=== PATIENT | female | born 1950 | race Caucasian/White ===

== ENCOUNTER → 2022-10-30 | Outpatient (REF) | payer MEDICARE | LOC: M LAB REF 17:55 | PROVIDERS: ATTEND Internal Medicine Nephrology | DX: R80.9 Proteinuria, unspecified (principal) ==

== ENCOUNTER → 2022-11-23 | Outpatient (CLI) | payer MEDICARE | LOC: M RAD 09:06 | PROVIDERS: ATTEND Internal Medicine Nephrology | DX: N18.31 Chronic kidney disease, stage 3a (principal); I70.1 Atherosclerosis of renal artery; N28.1 Cyst of kidney, acquired ==

== ENCOUNTER → 2022-12-14 | Outpatient (CLI) | payer MEDICARE ==
[~2022-12-14] MED LIST: ISOVUE-370 76% 100ML VIAL As Ordered ONE
== END ==
LOC: M RAD 13:27
PROVIDERS: ATTEND Internal Medicine Nephrology
DX: D41.01 Neoplasm of uncertain behavior of right kidney (principal); N28.1 Cyst of kidney, acquired; Z90.49 Acquired absence of other specified parts of digestive tract; K86.2 Cyst of pancreas; K57.30 Diverticulosis of large intestine without perforation or abscess without bleeding
CPT/HCPCS: 74178; Q9967

== ENCOUNTER 2023-02-14 06:14 | Inpatient (IN) | payer MEDICARE ==
[~2023-02-14] VITALS: Ht 154.9 cm; Wt 71.2 kg
[~2023-02-14 06:14] MED LIST changes: +ALIG4CAP PO; +CLEAPOW10 PO; +DULO1CAP4 PO; +GENTAMICIN 80 MG in IV 1 EA IV ONE; -ISOVUE-370 76% 100ML VIAL As Ordered ONE; +LISI10TA22 PO; +SIMV20TA22 PO; +VANCOMYCIN HCL 1,000 MG, VIAL MATE ADAPTER 1 EACH in D5W 250 ML IV ONE; +VITA1CAP25 PO; +VITMTA PO; +WHEA1TAB2 PO
[2023-02-14] MEDS ORDERED: LR 1,000 ML IV SCH (06:50)
[2023-02-14] MEDS ORDERED: fentaNYL 250 MCG/5 ML INJECTION As Ordered ONE (07:05)
[2023-02-14] MEDS ORDERED: MIDAZOLAM INJ 2MG/2ML VIAL As Ordered ONE (07:06)
[2023-02-14] MEDS ORDERED: ROCURONIUM BROMIDE 50MG/5ML VIAL As Ordered ONE ×5 (07:08→12:44)
[2023-02-14] MEDS ORDERED: LIDOCAINE 2% 100MG/5ML SDV (FOR ANES.) As Ordered ONE (07:08)
[2023-02-14] MEDS ORDERED: propofoL 200 MG/20 ML VIAL As Ordered ONE (07:08)
[2023-02-14] MEDS ORDERED: ACETAMINOPHEN 1000MG 100ML IV BAG As Ordered ONE (07:09)
[2023-02-14] MEDS ORDERED: ONDANSETRON 4MG 2ML VIAL As Ordered ONE (07:09)
[2023-02-14] MEDS ORDERED: METOCLOPRAMIDE INJ 10MG/2ML VIAL As Ordered ONE (07:09)
[2023-02-14] MEDS ORDERED: DULO-34 PO (07:13)
[2023-02-14] MEDS ORDERED: D-50CAP PO (07:13)
[2023-02-14] MEDS ORDERED: HOME MED LIST COMPLETE! XX SCH (07:15)
[2023-02-14] MEDS ORDERED: LIDOCAINE 1% SDV 30ML VIAL As Ordered ONE (07:27)
[2023-02-14] MEDS ORDERED: NS 1,000 ML IV SCH (07:30)
[2023-02-14] MEDS ORDERED: PERCOCET 5MG/325MG TAB PO PRN (07:30)
[2023-02-14] MEDS: GENTAMICIN 80 MG in IV 1 EA IV SCH (07:30)
[2023-02-14] MEDS ORDERED: ONDANSETRON 4MG 2ML VIAL IV PRN ×2 (07:30→14:55)
[2023-02-14] MEDS ORDERED: ACETAMINOPHEN TAB 650MG DOSE (2X325MG) PO PRN (07:30)
[2023-02-14] MEDS: VANCOMYCIN HCL 1,000 MG, VIAL MATE ADAPTER 1 EACH in NS 250 ML IV SCH ×3 (08:00→21:12)
[2023-02-14] MEDS ORDERED: GLYCOPYRROLATE INJ 0.2 MG/ML 2 ML VIAL As Ordered ONE (08:19)
[2023-02-14] MEDS ORDERED: VASOPRESSIN INJ 20UNITS/ML 1ML VIAL As Ordered ONE (08:20)
[2023-02-14] MEDS ORDERED: PHENYLEPHRINE 10MG/ML 1ML VIAL As Ordered ONE (08:38)
[2023-02-14] MEDS: DOCUSATE SODIUM 100MG CAPSULE PO SCH ×2 (09:00→21:11)
[2023-02-14] MEDS ORDERED: metroNIDAZOLE/NACL 500MG(5MG/ML) 100ML BAG As Ordered ONE (11:20)
[2023-02-14] MEDS ORDERED: MANNITOL 25% 12.5GM 50ML VIAL As Ordered ONE ×2 (12:28→12:35)
[2023-02-14] MEDS ORDERED: DESFLURANE 240 ML INHALANT As Ordered ONE (13:49)
[2023-02-14] MEDS ORDERED: SUGAMMADEX SODIUM 500 MG/5 ML VIAL (BRIDION) As Ordered ONE (14:08)
[2023-02-14] MEDS ORDERED: fentaNYL 100 MCG/2 ML INJECTION As Ordered ONE (14:23)
[2023-02-14] MEDS ORDERED: fentaNYL 100 MCG/2 ML INJECTION IV PRN (14:55)
[2023-02-14] MEDS ORDERED: ePHEDrine INJ 50MG/ML 1ML VIAL IV ONE (15:35)
[2023-02-14] MEDS ORDERED: LACTATED RINGER'S 1000 ML IV ONE (15:35)
[2023-02-14 15:44] LABS: HEMATOCRIT 32.2 % (36.0-47.0); MEAN CORPUSCULAR HEMOGLOBIN 29.2 pg (27.0-33.0); MEAN CORPUSCULAR HGB CONC 31.1 g/dl (32.0-36.5); MEAN CORPUSCULAR VOLUME 93.9 fl (80.0-96.0); PLATELET COUNT, AUTOMATED 209 10^3/uL (150-450); RED BLOOD COUNT 3.43 10^6/uL (4.00-5.40); WHITE BLOOD COUNT 11.1 10^3/uL (4.0-10.0)
[2023-02-14 16:01] LABS: CALCIUM LEVEL 6.8 MG/DL (8.3-10.6); CREATININE FOR GFR 1.47 MG/DL (0.55-1.30); GLOMERULAR FILTRATION RATE 37.2 (>39); POTASSIUM SERUM 4.6 MMOL/L (3.5-5.1)
[2023-02-14 16:45] VITALS: BP 102/53; TEMP 97.3; O2SAT 95
[2023-02-14 17:15] VITALS: BP 115/57; TEMP 97.5; O2SAT 93
[2023-02-14] MEDS: PERCOCET 5MG/325MG TAB PO PRN (17:33)
[2023-02-14 17:45] VITALS: BP 124/67; TEMP 98.1; O2SAT 96; O2SAT 99
[2023-02-14] MEDS: metroNIDAZOLE 500 MG in IV 1 EA IV SCH (18:06)
[2023-02-14 18:45] VITALS: BP 125/67; TEMP 98.2; O2SAT 97
[2023-02-14 21:03] VITALS: BP 96/54; TEMP 98.1; O2SAT 95
[2023-02-14] MEDS: SIMVASTATIN 20 MG TAB PO SCH (21:11)
[2023-02-14 22:24] VITALS: BP 95/52; TEMP 98.4; O2SAT 96
[2023-02-15] VITALS (7 sets, daily range): BP systolic 80–118; BP diastolic 46–63; TEMP 97.9–98.2; O2SAT 92–96
[2023-02-15] MEDS: GENTAMICIN 80 MG in IV 1 EA IV SCH (00:29)
[2023-02-15] MEDS: PERCOCET 5MG/325MG TAB PO PRN (00:29)
[2023-02-15] MEDS: metroNIDAZOLE 500 MG in IV 1 EA IV SCH (03:45)
[2023-02-15 08:17] LABS: HEMATOCRIT 27.9 % (36.0-47.0); HEMOGLOBIN 8.6 g/dl (12.0-15.5); MEAN CORPUSCULAR HEMOGLOBIN 29.1 pg (27.0-33.0); MEAN CORPUSCULAR HGB CONC 30.8 g/dl (32.0-36.5); MEAN CORPUSCULAR VOLUME 94.3 fl (80.0-96.0); PLATELET COUNT, AUTOMATED 175 10^3/uL (150-450); RED BLOOD COUNT 2.96 10^6/uL (4.00-5.40); WHITE BLOOD COUNT 6.2 10^3/uL (4.0-10.0)
[2023-02-15 08:46] LABS: CALCIUM LEVEL 6.8 MG/DL (8.3-10.6); CREATININE FOR GFR 1.99 MG/DL (0.55-1.30); GLOMERULAR FILTRATION RATE 26.2 (>39); POTASSIUM SERUM 4.4 MMOL/L (3.5-5.1)
[2023-02-15] MEDS: DOCUSATE SODIUM 100MG CAPSULE PO SCH ×2 (09:55→20:49)
[2023-02-15] MEDS: DULoxetine 20MG CAP (CYMBALTA) PO SCH (09:55)
[2023-02-15] MEDS: FERROUS SULFATE 325MG TAB PO SCH ×2 (10:35→20:49)
[2023-02-15] MEDS: SIMVASTATIN 20 MG TAB PO SCH (20:49)
[2023-02-16 06:02] VITALS: BP 121/63; TEMP 97.7; O2SAT 93
[2023-02-16 06:58] LABS: HEMATOCRIT 27.8 % (36.0-47.0); HEMOGLOBIN 8.8 g/dl (12.0-15.5); MEAN CORPUSCULAR HEMOGLOBIN 29.5 pg (27.0-33.0); MEAN CORPUSCULAR HGB CONC 31.7 g/dl (32.0-36.5); MEAN CORPUSCULAR VOLUME 93.3 fl (80.0-96.0); PLATELET COUNT, AUTOMATED 153 10^3/uL (150-450); RED BLOOD COUNT 2.98 10^6/uL (4.00-5.40); WHITE BLOOD COUNT 9.3 10^3/uL (4.0-10.0)
[2023-02-16 07:25] LABS: CALCIUM LEVEL 8.3 MG/DL (8.3-10.6); CREATININE FOR GFR 1.87 MG/DL (0.55-1.30); GLOMERULAR FILTRATION RATE 28.2 (>39); POTASSIUM SERUM 4.5 MMOL/L (3.5-5.1)
[2023-02-16] MEDS: DOCUSATE SODIUM 100MG CAPSULE PO SCH ×2 (09:32→19:45)
[2023-02-16] MEDS: FERROUS SULFATE 325MG TAB PO SCH ×2 (09:32→19:45)
[2023-02-16] MEDS: DULoxetine 20MG CAP (CYMBALTA) PO SCH (09:32)
[2023-02-16 14:00] VITALS: BP 121/61; TEMP 97; O2SAT 94
[2023-02-16] MEDS ORDERED: PERCOCET PO (15:35)
[2023-02-16] MEDS ORDERED: COLA100C5 PO (15:35)
[2023-02-16] MEDS: SIMVASTATIN 20 MG TAB PO SCH (19:46)
[2023-02-16] MEDS: zolPIDEM TARTRATE 5 MG TAB PO PRN (19:47)
[2023-02-16 23:21] VITALS: BP 118/61; TEMP 98.2; O2SAT 93
[2023-02-17 06:08] LABS: HEMATOCRIT 25.4 % (36.0-47.0); HEMOGLOBIN 8.1 g/dl (12.0-15.5); MEAN CORPUSCULAR HEMOGLOBIN 29.3 pg (27.0-33.0); MEAN CORPUSCULAR HGB CONC 31.9 g/dl (32.0-36.5); PLATELET COUNT, AUTOMATED 155 10^3/uL (150-450); RED BLOOD COUNT 2.76 10^6/uL (4.00-5.40); WHITE BLOOD COUNT 7.5 10^3/uL (4.0-10.0)
[2023-02-17 06:43] LABS: CALCIUM LEVEL 8.1 MG/DL (8.3-10.6); CREATININE FOR GFR 1.75 MG/DL (0.55-1.30); GLOMERULAR FILTRATION RATE 30.4 (>39)
[2023-02-17 06:50] VITALS: BP 124/64; TEMP 98.4; O2SAT 93
[2023-02-17] MEDS: DOCUSATE SODIUM 100MG CAPSULE PO SCH ×2 (08:57→21:29)
[2023-02-17] MEDS: FERROUS SULFATE 325MG TAB PO SCH ×2 (08:57→21:29)
[2023-02-17] MEDS: DULoxetine 20MG CAP (CYMBALTA) PO SCH (08:57)
[2023-02-17 15:38] VITALS: BP 127/64; TEMP 98.1
[2023-02-17 20:16] VITALS: BP 137/60; TEMP 98.4; O2SAT 89
[2023-02-17] MEDS: SIMVASTATIN 20 MG TAB PO SCH (21:29)
[2023-02-17] MEDS: zolPIDEM TARTRATE 5 MG TAB PO PRN (21:29)
[2023-02-18 05:18] VITALS: BP 129/58; TEMP 97.9; O2SAT 90
[2023-02-18 06:36] LABS: HEMATOCRIT 23.7 % (36.0-47.0); HEMOGLOBIN 7.5 g/dl (12.0-15.5); MEAN CORPUSCULAR HEMOGLOBIN 29.1 pg (27.0-33.0); MEAN CORPUSCULAR HGB CONC 31.6 g/dl (32.0-36.5); MEAN CORPUSCULAR VOLUME 91.9 fl (80.0-96.0); PLATELET COUNT, AUTOMATED 161 10^3/uL (150-450); RED BLOOD COUNT 2.58 10^6/uL (4.00-5.40); WHITE BLOOD COUNT 7.1 10^3/uL (4.0-10.0)
[2023-02-18 06:59] LABS: CREATININE FOR GFR 1.89 MG/DL (0.55-1.30); GLOMERULAR FILTRATION RATE 27.8 (>39); POTASSIUM SERUM 4.8 MMOL/L (3.5-5.1)
[2023-02-18 09:23] VITALS: BP 130/72; O2SAT 94
[2023-02-18] MEDS: DOCUSATE SODIUM 100MG CAPSULE PO SCH ×2 (09:31→20:46)
[2023-02-18] MEDS: DULoxetine 20MG CAP (CYMBALTA) PO SCH (09:31)
[2023-02-18] MEDS: FERROUS SULFATE 325MG TAB PO SCH ×2 (09:32→20:46)
[2023-02-18] MEDS ORDERED: IPRATROPIUM 0.5MG/ALBUTEROL 2.5MG INH SOL UD 3ML (DUONEB) NEB PRN (10:10)
[2023-02-18 14:00] VITALS: BP 122/65; TEMP 99.1; O2SAT 97
[2023-02-18] MEDS: IPRATROPIUM 0.5MG/ALBUTEROL 2.5MG INH SOL UD 3ML (DUONEB) NEB SCH ×2 (14:34→19:07)
[2023-02-18] MEDS: zolPIDEM TARTRATE 5 MG TAB PO PRN (20:46)
[2023-02-18] MEDS: SIMVASTATIN 20 MG TAB PO SCH (20:46)
[2023-02-18 21:40] VITALS: BP 133/70; TEMP 98.4; O2SAT 95
[2023-02-19] VITALS (7 sets, daily range): BP systolic 128–158; BP diastolic 78–92; TEMP 98.1–98.6; O2SAT 93–96
[2023-02-19] MEDS: IPRATROPIUM 0.5MG/ALBUTEROL 2.5MG INH SOL UD 3ML (DUONEB) NEB SCH ×3 (01:32→13:30)
[2023-02-19 06:07] LABS: HEMATOCRIT 23.7 % (36.0-47.0); HEMOGLOBIN 7.5 g/dl (12.0-15.5); MEAN CORPUSCULAR HGB CONC 31.6 g/dl (32.0-36.5); MEAN CORPUSCULAR VOLUME 91.5 fl (80.0-96.0); PLATELET COUNT, AUTOMATED 161 10^3/uL (150-450); RED BLOOD COUNT 2.59 10^6/uL (4.00-5.40); WHITE BLOOD COUNT 6.5 10^3/uL (4.0-10.0)
[2023-02-19 06:38] LABS: CALCIUM LEVEL 8.5 MG/DL (8.3-10.6); CREATININE FOR GFR 1.74 MG/DL (0.55-1.30); GLOMERULAR FILTRATION RATE 30.6 (>39); POTASSIUM SERUM 4.7 MMOL/L (3.5-5.1)
[2023-02-19] MEDS ORDERED: FUROSEMIDE 20MG/2ML VIAL IV ONE (08:00)
[2023-02-19] MEDS: FERROUS SULFATE 325MG TAB PO SCH (10:42)
[2023-02-19] MEDS: DULoxetine 20MG CAP (CYMBALTA) PO SCH (10:42)
[2023-02-19] MEDS: DOCUSATE SODIUM 100MG CAPSULE PO SCH (10:42)
== END 2023-02-19 15:35 | disposition home or self-care (01) | DRG 660 ==
LOC: M OR 06:14 → M MS5PR 16:40
PROVIDERS: ADMIT Urology; ATTEND Urology
PROC: 8E0W4CZ Robotic Assisted Procedure of Trunk Region, Percutaneous Endoscopic Approach (ICD-10-PCS; 2023-02-14)
PROC: 0DN84ZZ Release Small Intestine, Percutaneous Endoscopic Approach (ICD-10-PCS; 2023-02-14)
PROC: 0DB84ZZ Excision of Small Intestine, Percutaneous Endoscopic Approach (ICD-10-PCS; 2023-02-14)
PROC: 0TB04ZZ Excision of Right Kidney, Percutaneous Endoscopic Approach (ICD-10-PCS; principal; 2023-02-14 07:30)
PROC: 30233N1 Transfusion of Nonautologous Red Blood Cells into Peripheral Vein, Percutaneous Approach (ICD-10-PCS; 2023-02-19)
DX: N28.89 Other specified disorders of kidney and ureter (principal); K91.72 Accidental puncture and laceration of a digestive system organ or structure during other procedure; I12.9 Hypertensive chronic kidney disease with stage 1 through stage 4 chronic kidney disease, or unspecified chronic kidney disease; E78.00 Pure hypercholesterolemia, unspecified; N18.1 Chronic kidney disease, stage 1; Z90.49 Acquired absence of other specified parts of digestive tract; Z87.891 Personal history of nicotine dependence; Z79.899 Other long term (current) drug therapy; Z88.0 Allergy status to penicillin

== ENCOUNTER → 2023-04-30 | Outpatient (REF) | payer MEDICARE ==
[~2023-04-30] MED LIST changes: +COLA100C5 PO; +D-50CAP PO; +DULO-34 PO; -GENTAMICIN 80 MG in IV 1 EA IV ONE; +PERCOCET PO; -VANCOMYCIN HCL 1,000 MG, VIAL MATE ADAPTER 1 EACH in D5W 250 ML IV ONE
[2023-04-30 18:39] LABS: PERCENT SATURATION 15.7 % (13.2-45.0)
== END ==
LOC: M LAB REF 17:12
PROVIDERS: ATTEND Internal Medicine Nephrology
DX: D50.9 Iron deficiency anemia, unspecified (principal)

== ENCOUNTER → 2023-07-31 | Day surgery (SDC) | payer MEDICARE ==
[~2023-07-31] VITALS: Ht 154.9 cm; Wt 70.2 kg
[~2023-07-31] MED LIST changes: +AMLO1TAB24 PO; +GABA-1171 PO; +MV-M1CAP8 PO; +NS 1,000 ML IV ONE; +SLOW45TA PO; +propofoL 200 MG/20 ML VIAL As Ordered ONE
[2023-07-31 09:44] VITALS: TEMP 98.2
[2023-07-31 10:05] VITALS: BP 127/74; O2SAT 98
== END | disposition home or self-care (01) ==
LOC: M OPP 08:06
PROVIDERS: ATTEND Internal Medicine Gastroenterology
DX: Z86.010 Personal history of colon polyps (principal); K57.92 Diverticulitis of intestine, part unspecified, without perforation or abscess without bleeding; K57.30 Diverticulosis of large intestine without perforation or abscess without bleeding; K64.8 Other hemorrhoids; K52.9 Noninfective gastroenteritis and colitis, unspecified; K63.89 Other specified diseases of intestine; Z87.891 Personal history of nicotine dependence; Z79.02 Long term (current) use of antithrombotics/antiplatelets; Z79.891 Long term (current) use of opiate analgesic; Z79.899 Other long term (current) drug therapy; Z88.0 Allergy status to penicillin; Z88.5 Allergy status to narcotic agent; Z88.8 Allergy status to other drugs, medicaments and biological substances

== ENCOUNTER → 2023-08-09 | Outpatient (CLI) | payer MEDICARE ==
[~2023-08-09] MED LIST changes: -NS 1,000 ML IV ONE; -propofoL 200 MG/20 ML VIAL As Ordered ONE
== END ==
LOC: M PLAIMG 13:14
PROVIDERS: ATTEND Pain Medicine Interventional Pain Medicine
DX: M51.16 Intervertebral disc disorders with radiculopathy, lumbar region (principal); M48.061 Spinal stenosis, lumbar region without neurogenic claudication; M47.816 Spondylosis without myelopathy or radiculopathy, lumbar region

== ENCOUNTER → 2024-01-17 | Outpatient (REF) | payer MEDICARE ==
[2024-01-17 18:29] LABS: PERCENT SATURATION 21.4 % (13.2-45.0)
== END ==
LOC: M LAB REF 17:31
PROVIDERS: ATTEND Internal Medicine Nephrology
DX: D50.9 Iron deficiency anemia, unspecified (principal)

== ENCOUNTER 2024-02-07 14:30 | Outpatient (CLI) | payer MEDICARE ==
[~2024-02-07 14:30] MED LIST changes: +ALBUTEROL SULFATE 2.5MG/0.5ML INH NEB SOLN INH PRN; +EPINEPHrine INJ 1 MG/ML 1ML AMP IM PRN; +diphenhydrAMINE 50MG/ML VIAL IV PRN; +methylPREDNISolone 125MG 2ML VIAL IV PRN
[2024-02-07] MEDS: FERRIC CARBOXYMALTOSE INJ 750 MG in NS 250 ML (>50kg) IV ONE (14:41)
[2024-02-07 14:53] VITALS: BP 138/73; O2SAT 96
[2024-02-07] MEDS ORDERED: NS 1,000 ML IV SCH (15:00)
[2024-02-07 16:20] VITALS: BP 136/72; O2SAT 99
== END 2024-02-07 16:10 ==
LOC: M INFU 14:30
PROVIDERS: ATTEND Internal Medicine Nephrology
DX: D50.9 Iron deficiency anemia, unspecified (principal); Z88.0 Allergy status to penicillin; Z88.5 Allergy status to narcotic agent
CPT/HCPCS: 96365; J1439

== ENCOUNTER 2024-02-14 15:10 | Outpatient (CLI) | payer MEDICARE ==
[~2024-02-14] VITALS: Ht 157.5 cm; Wt 74.5 kg
[2024-02-14 15:10] VITALS: BP 122/70; O2SAT 100
[2024-02-14] MEDS: FERRIC CARBOXYMALTOSE INJ 750 MG in NS 250 ML (>50kg) IV ONE (15:22)
[2024-02-14] MEDS ORDERED: NS 1,000 ML IV SCH (15:30)
[2024-02-14 15:56] VITALS: BP 138/44; O2SAT 99
== END 2024-02-14 16:02 ==
LOC: M INFU 15:10
PROVIDERS: ATTEND Internal Medicine Nephrology
DX: D50.9 Iron deficiency anemia, unspecified (principal); Z88.0 Allergy status to penicillin; Z88.5 Allergy status to narcotic agent
CPT/HCPCS: 96365; J1439

== ENCOUNTER → 2025-05-07 | Outpatient (REF) | payer MEDICARE ==
[~2025-05-07] MED LIST changes: -ALBUTEROL SULFATE 2.5MG/0.5ML INH NEB SOLN INH PRN; -ALIG4CAP PO; +ALIG4CAP3 PO; -EPINEPHrine INJ 1 MG/ML 1ML AMP IM PRN; -diphenhydrAMINE 50MG/ML VIAL IV PRN; -methylPREDNISolone 125MG 2ML VIAL IV PRN
[2025-05-07 18:15] LABS: IRON (FE) 17.0 UG/DL (50-170)
[2025-05-07 18:16] LABS: PERCENT SATURATION 6.3 % (13.2-45.0)
== END ==
LOC: M LAB REF 17:00
PROVIDERS: ATTEND Internal Medicine Nephrology
DX: D50.9 Iron deficiency anemia, unspecified (principal)